=== PATIENT | female | born 1950 | race Caucasian/White ===

== ENCOUNTER 2017-01-06 17:33 | Emergency (ER) | payer SELFPAY ==
[~2017-01-06] VITALS: Wt 62.0 kg
[~2017-01-06 17:33] MED LIST: AMOX1TAB67; LEXAPRO
== END 2017-01-06 19:00 | disposition left against medical advice (07) ==
LOC: E/R 17:33
DX: Z53.21 Procedure and treatment not carried out due to patient leaving prior to being seen by health care provider (principal)